=== PATIENT | female | born 1990 | race Caucasian/White ===

== ENCOUNTER 2017-01-17 16:26 | Inpatient (IN) | payer MEDICARE, OTHER ==
--- NOTE | ~2017-01-17 | PN ---
Unit #: [id number] #: [id number] Patient: DUONG CAMARENA [id number] [facility] [address] [place] [address] [id number] I MR#: [id number] NAME: DUONG CAMARENA ROOM: [facility] Age: 26 Sex: F Admission Date: 01/17/2017 : 1990 Attending Physician: Pravin Kramer M.D. Admitting Physician: Pravin Kramer M.D. Primary Care Physician: Salvador Doctor Not In System [facility] PROGRESS NOTES DATE 01/19/2017 DISCUSSION The patient is more active within the therapeutic milieu and seems less disorganized than during previous hospitalizations. She appears her psychiatric baseline and discharge will likely take place after the weekend should the patient sustain progress. Dictated by... Pravin Kramer M.D. CB/jose miguel TD: 01/19/2017 15:06 JOB #: [id number] [facility] PROGRESS NOTES X Pravin Kramer MD PROGRESS NOTE
--- NOTE | ~2017-01-17 | HP ---
Unit #: [id number] #: [id number] Patient: DARLENE CAMARENA [id number] [place] [address] [id number] MR#: [id number] NAME: DARLENE CAMARENA ROOM: P122 Age: 26 Sex: F Admission Date: 01/17/2017 : 1990 Attending Physician: Pravin Kramer M.D. Admitting Physician: Pravin Kramer M.D. Primary Care Physician: Generic Doctor Not In System HISTORY AND PHYSICAL HISTORY OF PRESENT ILLNESS Darlene is a 26 year old admitted to [address] [place] [address] with psychotic behavior. She is a poor historian, so her history is taken from her chart. She has had other admissions to this facility rule out the same. PAST MEDICAL HISTORY Obesity. PAST SURGICAL HISTORY Nothing reported. ALLERGIES Seroquel, Saphris, risperidone, and Lasix. SOCIAL HISTORY She does not smoke. No history of alcohol, but does have a history of marijuana use. FAMILY HISTORY Medically noncontributory. REVIEW OF SYSTEMS She does not answer questions appropriately. There are no reports of nausea, vomiting, or diarrhea. She has had no cough or increased temperature. CURRENT MEDICATIONS 1. Zyprexa 10 mg q.h.s. 2. Cogentin 2 mg q. 8 hours p.r.n. 3. Milk of Magnesia p.r.n. 4. Maalox p.r.n. 5. Tylenol p.r.n. 6. Claritin 10 mg q. day. 7. Nicotine patch 14 mg q. day. PHYSICAL EXAMINATION GENERAL: Alert, obese. No apparent distress. VITAL SIGNS: Blood pressure 110/70, heart rate 80, respirations 16, and temperature 98.6. WEIGHT: 142. HEIGHT: 4 feet 11 inches. SKIN: Warm and dry without rash or lesion. HEENT: Normocephalic. TMs not viewed. Oral and nasal passages clear. Unit #: [id number] #: [id number] Patient: DARLENE CAMARENA Conjunctivae clear. PERRLA. EOMs intact. NECK: Supple without lymphadenopathy or thyromegaly. HEART: Regular rate and rhythm without murmur. LUNGS: Clear. ABDOMEN: Soft, nontender. : Not done. EXTREMITIES: No evidence of cyanosis, clubbing or edema. Moves all without focal deficit. NEUROLOGICAL: Unable to complete extended exam. She does move all extremities without focal deficit. Hand level glass vial filler equal and gait is normal. IMPRESSION Psychiatric admission. RECOMMENDATIONS PSYCHIATRIC: Per psychiatrist. MEDICAL: I see no contraindication to participate in this facility's activities. MEDICAL PROGNOSIS Good. MEDICAL CONDITION Stable. Dictated by... Rocio Rogers P.A.-C. for Kristina Flores/jelena TD: 01/18/2017 14:47 JOB #: [id number] HISTORY AND PHYSICAL X Rocio Rogers X HISTORY AND PHYSICAL
--- NOTE | ~2017-01-17 | DS ---
Unit #: [id number] #: [id number] Patient: DUONG CAMARENA [id number] [facility] [address] [place] [address] [id number] I MR#: [id number] NAME: DUONG CAMARENA ROOM: [facility] Age: 26 Sex: F Admission Date: 01/17/2017 : 1990 Discharge Date: 01/22/2017 Attending Physician: Pravin Kramer M.D. Primary Care Physician: Generic Doctor Not In System DISCHARGE SUMMARY REASON FOR ADMISSION The patient is a 26-year-old white female, brought to this facility by police after she had been found wandering yet again. HOSPITAL COURSE The patient was admitted to the [address] [place] [address] unit and placed on suicide precautions. She was restarted on previously prescribed medications including Claritin, Zyprexa, and Cogentin. The patient's stay in the hospital was surprisingly a brief and uneventful one. She improved considerably with reinitiation of Zyprexa and by 01/22/2017, was bright euthymic and looked to be functioning as highly as this physician has ever noted as per her request, discharge was ordered. FINAL DIAGNOSES Chronic paranoid schizophrenia. Environmental allergies. DISPOSITION ON DISCHARGE The patient is discharged on the following medications: Zyprexa 10 mg at h.s. for psychosis, Claritin 10 mg daily for environmental allergies, and Cogentin 2 mg q.8 hours p.r.n. stiffness. DISCHARGE INSTRUCTIONS No dietary or physical restrictions were placed on the patient at the time of discharge. FOLLOWUP Followup will take place through the auspices of [facility]. PROGNOSIS The patient's prognosis is considered fair. Dictated by... Pravin Kramer M.D. CB/binh TD: 01/22/2017 22:27 JOB #: [id number] Unit #: [id number] #: [id number] Patient: DUONG CAMARENA DISCHARGE SUMMARY X Pravin Kramer MD X DISCHARGE SUMMARY
--- NOTE | ~2017-01-17 | PN ---
Unit #: [id number] #: [id number] Patient: DUONG CAMARENA [id number] [facility] [address] [place] [address] [id number] I MR#: [id number] NAME: DUONG CAMARENA ROOM: P122 Age: 26 Sex: F Admission Date: 01/17/2017 : 1990 Attending Physician: Pravin Kramer M.D. Admitting Physician: Pravin Kramer M.D. Primary Care Physician: Generic Doctor Not In System [facility] PROGRESS NOTES DATE 01/21/2017 DISCUSSION The patient is seclusive to room but appears to be approaching her psychiatric baseline. She states she may go live with her mother rather than her grandparents at the time of discharge. Should she sustain progress discharge will likely place tomorrow. Dictated by... Pravin Kramer M.D. CB/aaron TD: 01/21/2017 22:03 JOB #: [id number] [facility] PROGRESS NOTES X Pravin Kramer MD PROGRESS NOTE
--- NOTE | ~2017-01-17 | PA ---
Unit #: [id number] #: [id number] Patient: DUONG CAMARENA [id number] [place] [address] [id number] I MR#: [id number] NAME: DUONG CAMARENA ROOM: [facility] Age: 26 Sex: F Admission Date: 01/17/2017 : 1990 Date of Assessment: 01/18/2017 Attending Physician: Pravin Kramer M.D. Admitting Physician: Pravin Kramer M.D. Primary Care Physician: Generic Doctor Not In System PSYCHIATRIC ASSESSMENT IDENTIFYING INFORMATION The patient is a 26-year-old unmarried white female admitted after she was brought to this facility by police yesterday. CHIEF COMPLAINT None given. INFORMANT Patient and chart, reliability good. HISTORY OF PRESENT ILLNESS The patient is a 26-year-old white female well known to this physician. She was discharged from this facility on 12/18/2016, the last time, and has a history of multiple previous admissions here. She carries a diagnosis of schizophrenia and has been prescribed Zyprexa, but her compliance to these medications has always been somewhat questionable. The patient had reportedly (1) __ CIT yesterday stating that she was not feeling safe and needed to "get back to her old unit." When she arrived at this facility she acted like in a childlike fashion and requested that the physician call her "baby come hear." For more complete history of present illness, please refer to previously dictated notes. PAST PSYCHIATRIC HISTORY Reviewed, no changes. PAST MEDICAL HISTORY Reviewed, no changes. MEDICAL HISTORY Claritin, Concerta, and Zyprexa. ALLERGIES Abilify, Saphris, Haldol, latex, Seroquel, and Risperdal. FAMILY HISTORY Reviewed, no changes. SOCIAL HISTORY Reviewed, no changes. MENTAL STATUS EXAMINATION Examination at this time reveals the patient to be an obese female appearing stated age. She is in no apparent physical distress at Unit #: [id number] #: [id number] Patient: DUONG CAMARENA the time of examination. She is awake, alert, and oriented in all spheres. Her mood is calm, her affect blunted and strange. Speech is impoverished, but generally well-coherent. There are no gross deficits in memory or cognition noted. Intelligence is judged to be in the low average range based on fund of knowledge. The patient is cooperative throughout the interview. She is currently denying suicidal or homicidal ideation but there is significant disorganization of thought. Her judgment and insight appear to be significantly impaired. ASSETS AND LIABILITIES The patient's assets are to be assessed. Liabilities: Poor compliance with treatment. Chronicity and severity of illness. DIAGNOSTIC IMPRESSION 1. Chronic paranoid schizophrenia. 2. Seizure disorder. 3. History of environmental allergies. TREATMENT PLAN The patient remains hospitalized for safety and stabilization. We will reinitiate previously prescribed medications including Zyprexa, Cogentin, and Claritin. The patient will participate in appropriate order of milieu activities. She does not appear to be as deteriorated as she has during her several previous hospitalizations but will likely require at least 5 to 7 days of hospitalization to clear. Dictated by... Pravin Kramer M.D. DARIO/jelena TD: 01/19/2017 09:50 JOB #: [id number] PSYCHIATRIC ASSESSMENT X Pravin Kramer MD X PSYCHIATRIC ASSESSMENT
[2017-01-18 09:54] LABS: EOSINOPHIL# 0.6 X10e3 (0-0.7); HEMATOCRIT 37.6 % (35.0-45.0); HEMOGLOBIN 12.7 gm/dL (12.0-16.0); LYMPHOCYTE# 2.8 X10e3 (1.0-3.5); MEAN CELL VOLUME 93.1 FL (83-96); MEAN CORPUSCULAR HEMOGLOBIN 31.4 PG (28-34); MEAN CORPUSCULAR HGB CONC 33.7 g/dL (30-36); MEAN PLATELET VOLUME 8.2 FL (6.5-11.5); MONOCYTE# 0.4 X10e3 (0-1.0); MONOCYTE% 5.7 % (3.0-12.0); NEUTROPHIL# 2.8 X10e3 (1.5-7.1); NEUTROPHIL% 42.3 % (40-75); PLATELET COUNT 270 X10e3 (140-420); RED BLOOD COUNT 4.04 X10e (3.90-5.30); RED CELL DISTRIBUTION WIDTH 12.4 % (11.0-15.5); WHITE BLOOD COUNT 6.6 X10e3 (4.0-10.5)
[2017-01-18 09:55] LABS: DIFF IND NO
[2017-01-18 10:32] LABS: ALBUMIN SERUM 3.3 g/dL (3.5-5.0); ALKALINE PHOSPHATASE 71 U/L (32-92); ALT (SGPT) 18 U/L (10-40); AST (SGOT) 16 U/L (10-42); BILIRUBIN,TOTAL 0.3 mg/dL (0.2-2.0); BLOOD UREA NITROGEN 14 mg/dL (9-23); CALCIUM SERUM 9.4 mg/dL (8.4-10.2); CARBON DIOXIDE 26 mmol/L (22-31); CHLORIDE 109 mmol/L (100-111); CREATININE SERUM 0.7 mg/dL (0.6-1.4); GLOM FILT RATE Estimated ABOVE60 mL/min (>60); GLUCOSE FASTING 88 mg/dL (70-110); POTASSIUM 4.8 mmol/L (3.5-5.1); PROTEIN TOTAL SERUM 6.1 g/dL (6.0-8.3); SODIUM 144 mmol/L (135-145)
== END 2017-01-22 15:30 | disposition home or self-care (01) | DRG 885 ==
LOC: P1S 16:26
PROVIDERS: Specialist
DX: F20.0 Paranoid schizophrenia (principal); G40.909 Epilepsy, unspecified, not intractable, without status epilepticus; R45.851 Suicidal ideations; E66.9 Obesity, unspecified
CPT/HCPCS: 80053; 84703; 85025

== ENCOUNTER 2017-03-03 22:38 | Emergency (ER) | payer MEDICARE, OTHER | END 2017-03-04 02:30 | disposition home or self-care (01) | LOC: CED 22:38 | DX: R45.851 Suicidal ideations (principal); F20.0 Paranoid schizophrenia; F32.9 Major depressive disorder, single episode, unspecified; F17.210 Nicotine dependence, cigarettes, uncomplicated | CPT/HCPCS: 99283 ==

== ENCOUNTER 2017-03-25 16:23 | Inpatient (IN) | payer MEDICARE, OTHER ==
--- NOTE | ~2017-03-25 | DS ---
Unit #: [id number] #: [id number] Patient: DUONG CAMARENA [id number] [facility] [address] [place] [address] [id number] MR#: [id number] NAME: DUONG CAMARENA ROOM: P266 Age: 26 Sex: F Admission Date: 03/25/2017 : 1990 Discharge Date: 03/27/2017 Attending Physician: Pravin Kramer M.D. Primary Care Physician: Primary Care Physician No DISCHARGE SUMMARY REASON FOR ADMISSION The patient is a 26-year-old white female with history of chronic paranoid schizophrenia, admitted voicing suicidal ideation. HOSPITAL COURSE The patient was admitted to the [facility] unit and placed on suicide precautions. She was continued on home medications including Zyprexa 30 mg at h.s. and Cogentin was also continued. When seen by this physician on 03/26/2017, the patient appeared to be at or near her psychiatric baseline. She was bright, pleasant, and cooperative, and denied any psychotic symptoms. She did agree to one further day of observation. By 03/27/2017, the patient was sustaining progress. She looked in fact to be doing much better than during multiple previous hospitalizations and was not felt to meet criteria for ongoing involuntary hospitalization. As per her request, discharge was ordered. FINAL DIAGNOSIS Chronic paranoid schizophrenia. DISPOSITION ON DISCHARGE The patient is discharged on the following medications; Zyprexa 30 mg at bedtime for psychosis, Cogentin 2 mg q.8 hours p.r.n. EPS, Desyrel 150 mg at bedtime p.r.n. insomnia. We also have evidence that the patient may be receiving Haldol Decanoate shot. Her last dose having been given on 03/12/2017 at a dose of 150 mg. FOLLOWUP The patient will follow up through the auspices of community mental health resources. PROGNOSIS Her prognosis is considered fair. Dictated by... Pravin Kramer M.D. DARIO/binh TD: 03/27/2017 23:28 JOB #: [id number] Unit #: [id number] #: [id number] Patient: DUONG CAMARENA DISCHARGE SUMMARY Page 1 of 1 X Pravin Kramer MD DISCHARGE SUMMARY
--- NOTE | ~2017-03-25 | PA ---
Unit #: [id number] #: [id number] Patient: DUONG CAMARENA [id number] [facility] [address] [place] [address] [id number] I MR#: [id number] NAME: DUONG CAMARENA ROOM: P266 Age: 26 Sex: F Admission Date: 03/25/2017 : 1990 Date of Assessment: 03/26/2017 Attending Physician: Pravin Kramer M.D. Admitting Physician: Pravin Kramer M.D. Primary Care Physician: Primary Care Physician No PSYCHIATRIC ASSESSMENT IDENTIFYING INFORMATION The patient is a 45-year-old white female admitted she presented to this facility voicing positive suicidal ideation. CHIEF COMPLAINT None given. INFORMANT Patient RELIABILITY Fair HISTORY OF PRESENT ILLNESS The patient is a 26-year-old white female last discharge from this facility 01/22/2017. The patient had presented to this facility yesterday voicing positive suicidal ideation with plan to step in front of an automobile. She stated that she had been living with her mother and that this had been an unfortunate situation for her. She also reported that she had been approached by "someone who shouldn't approach me" and that this had been a source of stress. When seen today, the patient denies suicidal or homicidal ideation and appears to be at or near her psychiatric baseline. She is in fact bright, euthymic and exhibits no disorganization of thought which generally accompanies her admissions to the hospital. She is currently denying suicidal ideation. For a more complete History of Present Illness, please refer to previously dictated notes. with plan to overdose. During previous hospitalizations, the patient was started on Prozac. She requests an increase in this medication. 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 For a more complete history of present illness, please refer to previous dictated notes. PAST PSYCHIATRIC HISTORY Reviewed, no changes. FAMILY HISTORY/SOCIAL HISTORY Reviewed, no changes. The patient plans to live with her grandparents following discharge. MEDICAL HISTORY Reviewed, no changes. MEDICATION HISTORY Unit #: [id number] #: [id number] Patient: DUONG CAMARENA Zyprexa ALLERGIES Abilify, Saphris, Haldol, latex, Seroquel, Risperdal. MENTAL STATUS EXAM At this time, reveals the patient to be a well-developed, well-nourished white female appearing her stated age. She is in no apparent physical distress at time of the examination. She is awake, alert, and oriented in all spheres. Her mood is euthymic. Her affect is surprisingly full range. There are no gross deficits in memory or cognition noted. Intelligence is judged to be in the average range based on fund of knowledge. The patient is cooperative throughout the interview. She is currently reporting no suicidal or homicidal ideation or psychotic features. Her judgment and insight appear to be intact. ASSETS Motivation for change. LIABILITIES Lack of resources. ADMITTING DIAGNOSES Chronic paranoid schizophrenia PSYCHIATRIC PLAN/TREATMENT GOALS The patient remains hospitalized for safety and stabilization. We will continue previously prescribed medications, specifically Zyprexa 10 mg at bedtime. The patient will participate in appropriate watson and milieu activities. ESTIMATED LENGTH OF STAY 2-3 days. Dictated by... Pravin Kramer M.D. DARIO/aditya TD: 03/26/2017 16:53 JOB #: [id number] PSYCHIATRIC ASSESSMENT Page 1 of 1 X Pravin Kramer MD X PSYCHIATRIC ASSESSMENT
--- NOTE | ~2017-03-25 | HP ---
Unit #: [id number] #: [id number] Patient: DARLENE CAMARENA [id number] [place] [address] [id number] I MR#: [id number] NAME: DARLENE CAMARENA ROOM: P266 Age: 26 Sex: F Admission Date: 03/25/2017 : 1990 Attending Physician: Pravin Kramer M.D. Admitting Physician: Pravin Kramer M.D. Primary Care Physician: Primary Care Physician No HISTORY AND PHYSICAL HISTORY OF PRESENT ILLNESS Darlene is a 26 year old admitted to [address] [place] [address] with depression and verbalizing wanting to hurt herself. She has had other admissions to this facility for the same. PAST MEDICAL HISTORY Obesity PAST SURGICAL HISTORY Nothing reported. ALLERGIES Haldol, Depakote, Tegretol, risperidone, latex, aripiprazole. No known drug allergies. SOCIAL HISTORY She does not smoke or use alcohol. Has a history of marijuana use. FAMILY HISTORY Medically noncontributory. REVIEW OF SYSTEMS CONSTITUTIONAL: No fever or chills. HEENT: Denies any sore throat, ear pain or runny nose. CARDIOVASCULAR: Denies chest pain, irregular heart rhythm or palpitations. CHEST: Denies shortness of breath or cough. No hemoptysis. GASTROINTESTINAL: Denies nausea, vomiting, diarrhea or chronic constipation. ENDOCRINE: Denies history of increased thirst or urination. No recent significant weight loss or gain. GENITOURINARY: Denies dysuria, frequency, or hematuria. SKIN: Denies any rashes. HEMATOLOGIC: Denies history of increased bleeding or bruising. MUSCULOSKELETAL: Denies any hot, swollen joints. No generalized muscle pain. NEUROLOGIC: Denies problems with vision or speech. No frequent, severe headaches. No numbness, tingling or weakness in any extremities. Denies loss of bladder or bowel control. CURRENT MEDICATIONS 1. Cogentin 2 mg q.h.s. 2. Trazodone 150 mg q.h.s. Unit #: [id number] #: [id number] Patient: DARLENE CAMARENA 3. Zyprexa 30 mg q.h.s. 4. Milk of Magnesia p.r.n. 5. Maalox p.r.n. 6. Tylenol p.r.n. 7. Cogentin 2 mg q 8 hours 8. P.r.n. nicotine patch 7 mg q day PHYSICAL EXAMINATION GENERAL: Alert, well-nourished, in no apparent distress. VITAL SIGNS: Blood pressure 110/68, 6heart rate 80, respirations 16, temperature 98.6. WEIGHT: 139 pounds. HEIGHT: 5'0". SKIN: Warm and dry without rash or lesion. HEENT: Normocephalic. TMs not viewed. Oral and nasal passages clear. Conjunctivae clear. Pupils equal, round and reactive to light and accommodation. Extraocular movements intact. NECK: Supple without lymphadenopathy or thyromegaly. HEART: Regular rate and rhythm without murmur. LUNGS: Clear. ABDOMEN: Soft, nontender. : Not done. EXTREMITIES: No evidence of cyanosis, clubbing or edema. Moves all extremities without focal deficit. NEUROLOGICAL: Grossly within normal limits. Cranial Nerves: II: Visual brown are intact. III, IV AND : Extraocular movements are intact. Pupils are equal, round and reactive to light. V: Facial sensation is grossly normal. VII: Facial movements and expression are normal. VIII: Auditory acuity grossly intact. IX, X: Uvula is midline. Phonation is normal. XI: Patient shrugs shoulders and turns head normally. XII: Tongue protrudes in the midline. Sensory and Motor Function: Sensory and motor sensation is grossly normal. Motor: moves all extremities well. Coordination: Gait is normal. Deep Tendon Reflexes: Intact. IMPRESSION Psychiatric admission RECOMMENDATIONS PSYCHIATRIC: Per psychiatrist. MEDICAL: I see no contraindications to participating in facility's activities. MEDICAL PROGNOSIS Good. MEDICAL CONDITION Stable. Dictated by... Rocio Rogers P.A.-C. for Unit #: [id number] #: [id number] Patient: DARLENE CAMARENA Kristina Flores/aaron TD: 03/26/2017 23:02 JOB #: [id number] HISTORY AND PHYSICAL Page 1 of 1 X Rocio Rogers HISTORY AND PHYSICAL
== END 2017-03-27 14:05 | disposition home or self-care (01) | DRG 885 ==
LOC: P2L 16:23
DX: F20.0 Paranoid schizophrenia (principal); Z88.5 Allergy status to narcotic agent; Z88.8 Allergy status to other drugs, medicaments and biological substances; Z91.040 Latex allergy status

== ENCOUNTER 2017-04-24 19:00 | Inpatient (IN) | payer MEDICARE, OTHER ==
--- NOTE | ~2017-04-24 | PN ---
Unit #: [id number] #: [id number] Patient: DUONG CAMARENA [id number] [facility] [address] [place] [address] [id number] MR#: [id number] NAME: DUONG CAMARENA ROOM: [facility] Age: 26 Sex: F Admission Date: 04/24/2017 : 1990 Attending Physician: Pravin Kramer M.D. Admitting Physician: Pravin Kramer M.D. Primary Care Physician: Primary Care Physician Monique UMANA PROGRESS NOTES DATE 04/26/2017 DISCUSSION The patient seems to be approaching her psychiatric baseline. She is more pleasant and less pressured and less disorganized during today's interview. Should she sustain progress discharge could take place as early as tomorrow. Dictated by... Pravin Kramer M.D. CB/jose miguel TD: 04/26/2017 15:06 JOB #: [id number] [facility] PROGRESS NOTES Page 1 of 1 X Pravin Kramer MD X PROGRESS NOTE
--- NOTE | ~2017-04-24 | HP ---
Unit #: [id number] #: [id number] Patient: DARLENE CAMARENA [id number] [place] [address] [id number] I MR#: [id number] NAME: DARLENE CAMARENA ROOM: P122 Age: 26 Sex: F Admission Date: 04/24/2017 : 1990 Attending Physician: Pravin Kramer M.D. Admitting Physician: Pravin Kramer M.D. Primary Care Physician: Primary Care Physician No HISTORY AND PHYSICAL Darlene is a 26 year old admitted to [address] [place] [address] with depression and verbalizing wanting to hurt herself. She has had other admissions to this facility for the same. Patient was seen and H and P dated 03/26/17 was reviewed. This is current. No changes. Please see H and P dated 03/26/17. Dictated by... Rocio Rogers P.A.-C. for Kristina Flores/jose miguel TD: 04/25/2017 21:05 JOB #: [id number] HISTORY AND PHYSICAL Page 1 of 1 X Rocio Rogers HISTORY AND PHYSICAL
--- NOTE | ~2017-04-24 | DS ---
Unit #: [id number] #: [id number] Patient: DUONG CAMARENA [id number] [place] [address] [id number] I MR#: [id number] NAME: DUONG CAMARENA ROOM: [facility] Age: 26 Sex: F Admission Date: 04/24/2017 : 1990 Discharge Date: 04/27/2017 Attending Physician: Pravin Kramer M.D. DISCHARGE SUMMARY REASON FOR ADMISSION The patient is a 26-year-old white female, admitted to the [address] [place] [address] unit after had been dropped off at this facility by her mother. HOSPITAL COURSE The patient was admitted to the [address] [place] [address] unit and restarted on previously prescribed medications. She seemed to have improved rapidly with reinitiation of Zyprexa as had been the case during her most recent hospitalization. By 04/27/2017, the patient was felt to be at or near her psychiatric baseline. Discharge was ordered. FINAL DIAGNOSIS Chronic paranoid schizophrenia. DISPOSITION ON DISCHARGE The patient is discharged on the following medications: Cogentin 2 mg at bedtime for extrapyramidal symptoms, Zyprexa 20 mg at bedtime for psychosis, trazodone 150 mg at h.s. p.r.n. insomnia. DISCHARGE INSTRUCTIONS No dietary or physical restrictions were placed upon the patient at the time of discharge. FOLLOWUP Followup will take place through the auspices of community mental health resources. PROGNOSIS The patient's prognosis remains guarded. Dictated by... Pravin Kramer M.D. CB/binh TD: 04/27/2017 14:44 JOB #: [id number] Unit #: [id number] #: [id number] Patient: DUONG CAMARENA DISCHARGE SUMMARY Page 1 of 1 X Pravin Kramer MD X DISCHARGE SUMMARY
--- NOTE | ~2017-04-24 | PA ---
Unit #: [id number] #: [id number] Patient: DUONG CAMARENA [id number] [place] [address] [id number] MR#: [id number] NAME: DUONG CAMARENA ROOM: P122 Age: 26 Sex: F Admission Date: 04/24/2017 : 1990 Date of Assessment: 04/25/2017 Attending Physician: Pravin Kramer M.D. Admitting Physician: Pravin Kramer M.D. Primary Care Physician: Primary Care Physician No PSYCHIATRIC ASSESSMENT IDENTIFYING INFORMATION The patient is a 26-year-old white female, well known to this physician from multiple previous admissions to this facility as well as [facility]. HISTORY OF PRESENT ILLNESS The patient was admitted after having been dropped off at this facility by her mother. The patient claims that she has maintained sobriety with her prescribed medications including trazodone, Zyprexa, and Cogentin. The patient reports that she is "not getting along with her mother and continues to leave her mother." The patient also reports that [place] had [place] from her grandfather. When seen today the patient is abed. She is flat and provides little in the way of the usual information. The patient did report that she had [place] to end her life. She is known to travel to her grandparents' house by walking on the shoulder of the [address]. For more complete history of present illness please refer to the previously dictated notes. PAST PSYCHIATRIC HISTORY Reviewed and no changes. PAST MEDICAL HISTORY Reviewed and no changes. MEDICATIONS 1. Cogentin 2. Zyprexa 3. Trazodone ALLERGIES Aripiprazole, Saphris, Tegretol, Depakote, Haldol, latex, Seroquel, and Risperdal. FAMILY HISTORY Reviewed and no changes. SOCIAL HISTORY Reviewed and no changes. MENTAL STATUS EXAM At this time, reveals the patient to be a well-developed, well-nourished white female, appearing her stated age. She is in no apparent physical Unit #: [id number] #: [id number] Patient: NICOL,DUONG KRUNAL distress at the time of this examination. She is awake, alert, and oriented in all spheres. Her mood is dysphoric. Her affect flat. Speech is impoverished and somewhat tangential. There are no gross deficits to memory or cognition noted but formal testing is not possible as the patient is less than cooperative during the interview. She is currently reporting positive suicidal ideation. she denies homicidal ideation. She reports positive auditory hallucinations and does exhibit significant disorganization thought. Her judgment and insight appear to be significantly impaired. ASSETS The patient's assets to be assessed. LIABILITIES Lack of resources, poor compliance with treatment. DIAGNOSTIC IMPRESSION [place] I: Schizoaffective disorder. TREATMENT PLAN The patient's home medications will be reinitiated. Suicide precautions remain in place. The patient will participate in appropriate watson and milieu activities. ESTIMATED LENGTH OF STAY IN THE HOSPITAL [id number] days. She does tend to "tune-up" rather quickly with reinitiation of medications. Dictated by... Pravin Kramer M.D. DARIO/vanessa TD: 04/25/2017 12:59 JOB #: [id number] PSYCHIATRIC ASSESSMENT Page 1 of 1 X Pravin Kramer MD X PSYCHIATRIC ASSESSMENT
== END 2017-04-27 17:02 | disposition home or self-care (01) | DRG 885 ==
LOC: P1S 22:03
DX: F20.0 Paranoid schizophrenia (principal); R45.851 Suicidal ideations